=== PATIENT | female | born 1930 | race Caucasian/White ===

== ENCOUNTER 2018-11-08 12:02 | Inpatient (IN) ==
[2018-11-08] MEDS ORDERED: IOPAMIDOL 100 ML BOTTLE IV ONE (12:03)
[2018-11-08] MEDS ORDERED: 0.9 % SODIUM CHLORIDE 1,000 ML IV ONE ×2 (12:26→16:49)
[2018-11-08] MEDS ORDERED: INSULIN REGULAR, HUMAN 1 UNIT/0.01 ML UNIT IV ONE (12:27)
[2018-11-08] MEDS ORDERED: PIPERACILLIN SODIUM/TAZOBACTAM 3.375 GM in DEXTROSE 5% IN WATER 50 ML IV ONE (12:28)
[2018-11-08] MEDS ORDERED: VANCOMYCIN 1,000 MG in 0.9 % SODIUM CHLORIDE 250 ML IV ONE (12:29)
--- NOTE | 2018-11-08 12:33 | Emergency Department Note ---
Chest Pain HPI - General Chief Complaint: Chest Pain Stated Complaint: Chest Pain, Bilateral Hand Pain Time Seen by Provider: 11/08/18 12:20 Source: patient, family Mode of arrival: wheelchair Limitations: no limitations - History of Present Illness HPI Narrative: 87-year-old female oriented only to self comes in for confusion that started this morning. Brought in by her family members, son. He cannot give me meaningful history or review of systems so all that is from family. She is complaining of chest pain like someone sitting on her chest difficulty breathing with that but there is no fever or diaphoresis. She does not have a heart history - Related Data Home Medications Medication Instructions Recorded Confirmed Acetaminophen [Acetaminophen Extra 500 mg PO TIDP PRN 03/04/15 10/21/18 Strength] Atenolol [Tenormin] 100 mg PO DAILY 03/04/15 10/21/18 Calcium Carbonate/Vitamin D3 1 tab PO DAILY 03/04/15 10/21/18 [Calcium 500 + Vit D Caplet] Cyanocobalamin (Vitamin B-12) 1,000 mcg PO DAILY 03/04/15 10/21/18 [Vitamin B-12] Gluc Giles/Chondro Giles A/Vit C/Mn 1 tab PO DAILY 03/04/15 10/21/18 [Glucosamine Chondroitin Tab] Levothyroxine [Synthroid] 75 mcg PO QAMAC 03/04/15 10/21/18 [place]-3 Fatty Acids/Fish Oil [Fish 1 cap PO TID 03/04/15 10/21/18 Oil 1,000 mg Softgel] Vitamin D3 2,000 unit PO DAILY 03/04/15 10/21/18 amLODIPine [Norvasc] 10 mg PO DAILY 03/04/15 10/21/18 metFORMIN [Glucophage] 850 mg PO BIDCC 03/04/15 10/21/18 Calcium Carbonate [Tums] 500 mg CHEWED PRN PRN 03/08/15 10/21/18 Polyvinyl Alcohol/Povidone/Pf 1 each BOTH EYES DAILYP PRN 03/08/15 10/21/18 [Refresh Classic Eye Drops] acetaminophen 300 mg-codeine 30 mg See Rx Instructions PO .Q6-8H PRN 10/21/18 10/21/18 tablet tab gabapentin 100 mg capsule 100 mg PO QHS 10/21/18 10/21/18 glipizide 5 mg tablet 5 mg PO BID 10/21/18 10/21/18 hydrochlorothiazide 12.5 mg capsule 12.5 mg PO QMWF cap 10/21/18 10/21/18 omeprazole 40 mg capsule,delayed 40 mg PO QDAY 10/21/18 10/21/18 release pioglitazone 15 mg tablet 15 mg PO QDAY 10/21/18 10/21/18 Previous Rx's Medication Instructions Recorded Aspirin/Calcium Carbonate/Mag 325 mg PO BID #60 tab 03/09/15 [Aspirin Buffered 325 mg Tab] Walker [Ultra-Light Rollator] 1 each MC DAILY #1 each 03/09/15 oxyCODONE HCL/ACETAMINOPHEN 1 - 2 each PO Q4 PRN #90 tab 03/09/15 [Percocet 5-325 mg Tablet] oxyCODONE HCL/ACETAMINOPHEN 1 each PO Q6H PRN #20 tab 03/20/17 [Percocet 7.5-325 mg Tablet] Allergies Allergy/AdvReac Type Severity Reaction Status Date / Time Sulfa (Sulfonamide Allergy Intermediate Hives Verified 08/08/18 17:20 Antibiotics) [SULFA (SULFONAMIDE ANTIBIOTICS)] aspirin AdvReac Intermediate Other Verified 08/08/18 17:20 amlodipine [From Lotrel] AdvReac Cough Verified 08/08/18 17:20 benazepril [From Lotrel] AdvReac Cough Verified 08/08/18 17:20 hydrocodone AdvReac Hallucinati Verified 08/08/18 17:20 ng rosuvastatin [From Crestor] AdvReac Cough Verified 08/08/18 17:20 Review of Systems Limitations: ROS unobtainable due to patients medical condition Chest Pain PMH - Past Medical History [facility] Narrative: Family History (Last Updated 10/21/18 @ 12:48 by Wilfrid Sanchez) Other No pertinent family history Medical History (Last Updated 10/21/18 @ 12:48 by Wilfrid Sanchez) Hx of gout (Chronic) Lumbar back pain with radiculopathy affecting lower extremity (Chronic) Hip pain (Chronic) Hypothyroidism (Chronic) Diabetes mellitus (Chronic) Osteoarthritis (Chronic) Diverticular disease (Chronic) Hypercalcemia (Chronic) Heartburn (Chronic) Elevated liver function tests (Chronic) Reduced mobility (Chronic) Headache (Chronic) Weakness (Chronic) Difficulty balancing (Chronic) HTN (hypertension) (Chronic) Hematoma (Chronic) 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 Conjunctive are clear sclerae white nonicteric. No nasal discharge or congestion. Oropharynx is with dry buccal mucosa. Limited cooperation on this part of the exam. Neck is supple without lymphadenopathy or thyromegaly. No carotid bruit. Heart is regular rate and rhythm. She does have a soft 2 out of 6 systolic murmur. Lungs are basically clear to auscultation bilaterally. I do not hear any wheezes rales or rhonchi. Palpation of the anterior chest wall reproduces tenderness when palpating the sternum. Abdomen soft nontender nondistended. No peritoneal signs or guarding. No pedal edema. She is oriented only to self, clearly confused and somnolent Limitations: no limitations Course Vital Signs Temperature 98.2 F 11/08/18 12:04 Pulse Rate 59 L 11/08/18 12:04 Respiratory Rate 20 11/08/18 12:04 Blood Pressure 151/60 11/08/18 12:04 Pulse Oximetry (%) 93 11/08/18 12:04 Temperature 98.1 F 11/08/18 15:02 Pulse Rate 55 L 11/08/18 15:48 Respiratory Rate 15 11/08/18 15:48 Blood Pressure 127/47 11/08/18 15:48 Pulse Oximetry (%) 93 11/08/18 15:48 Chest Pain - Lab Data Lab results reviewed: Yes I reviewed the patient's lab results. Result diagrams: 11/08/18 12:28 11/08/18 12:28 Lab Results 11/08/18 11/08/18 11/08/18 Range/Units 12:28 12:28 12:28 WBC 8.6 (4.5-11.0) K/mcL RBC 4.96 (4.00-5.20) M/mcL Hgb 13.9 (12.0-15.0) g/dL Hct 42.4 (36.0-48.0) % POC Hct (36.0-48.0) % MCV 85.5 (80.0-100.0) fL MCH 28.0 (26.0-34.0) pg MCHC 32.8 (31.0-36.0) g/dL RDW 14.7 H (11.5-14.5) % Plt Count 357 (140-440) K/mcL MPV 9.0 (7.4-10.4) fL Gran % 74.3 (38.0-78.0) % Lymph % (Auto) 17.3 (15.5-49.0) % [place] % (Auto) 6.3 (1.0-12.0) % Eos % (Auto) 1.5 (0.0-7.0) % Baso % (Auto) 0.6 (0.0-2.0) % Gran # 6.4 (1.8-8.0) K/mcL Lymph # (Auto) 1.5 (1.5-4.8) K/mcL [place] # (Auto) 0.5 (0.1-0.9) K/mcL Eos # (Auto) 0.1 (0.0-0.7) K/mcL Baso # (Auto) 0.1 (0.0-0.3) K/mcL VBG Lactic Acid (0.5-2.0) mmol/L POC Sodium (133-145) mmol/L Sodium 133 (133-145) mmol/L POC Potassium (3.3-5.1) mmol/L Potassium 4.3 (3.3-5.1) mmol/L POC Chloride (96-108) mmol/L Chloride 94 L (96-108) mmol/L Carbon Dioxide 22 (22-30) mmol/L POC Total CO2 (22-30) mmol/L Anion Gap 17.0 H (8-16) POC BUN (8-23) mg/dl BUN 18 (8-23) mg/dl Creatinine 1.1 (0.6-1.1) mg/dl POC Creatinine (0.6-1.1) mg/dl GFR Calculation 45 Glucose 369 H (70-105) mg/dL POC Glucose (70-105) mg/dL Calcium 9.9 (8.6-10.4) mg/dl POC WB Ioniz Calcium (1.16-1.32) mmol/L Total Bilirubin 0.4 (0.0-1.0) mg/dL AST 30 (0-37) U/l ALT 23 (0-40) U/l Alkaline Phosphatase 105 (39-117) U/L Total Creatine Kinase 41 (24-170) IU/L CK-MB (CK-2) 3.6 H (0-2.9) ng/ml Myoglobin 40 (25-58) ng/ml Troponin T < 0.01 (0-0.03) ng/ml NT-Pro-B Natriuret Pep (0-450) pg/ml Total Protein 8.0 (5.9-8.4) gm/dL Albumin 4.2 (3.2-5.2) gm/dL Globulin 3.8 H (2.2-3.7) gm/dL Albumin/Globulin Ratio 1.1 (1.0-2.3) Lipase (7-60) U/L Procalcitonin (<0.10) ng/mL Urine Color Urine Appearance Urine pH (5.0-9.0) Ur Specific [place] (1.000-1.035) Urine Protein (NEG) mg/dL Urine Glucose (UA) (NEG) mg/dL Urine Ketones (NEG) mg/dL Urine Occult Blood (<0.03) mg/dL Urine Nitrate (NEG) Urine Bilirubin (NEG) mg/dL Urine Urobilinogen (NEG) mg/dL Ur Leukocyte Esterase (NEG) /uL Urine RBC (0-1) /hpf Urine WBC (0-4) /hpf Ur Squamous Epith Cells (0-4) /hpf Urine Bacteria (0) /hpf Urine Mucus (0) /hpf Ur Culture Indicated? 11/08/18 11/08/18 11/08/18 Range/Units 12:29 12:39 12:48 WBC (4.5-11.0) K/mcL RBC (4.00-5.20) M/mcL Hgb (12.0-15.0) g/dL Hct (36.0-48.0) % POC Hct 40.0 (36.0-48.0) % MCV (80.0-100.0) fL MCH (26.0-34.0) pg MCHC (31.0-36.0) g/dL RDW (11.5-14.5) % Plt Count (140-440) K/mcL MPV (7.4-10.4) fL Gran % (38.0-78.0) % Lymph % (Auto) (15.5-49.0) % [place] % (Auto) (1.0-12.0) % Eos % (Auto) (0.0-7.0) % Baso % (Auto) (0.0-2.0) % Gran # (1.8-8.0) K/mcL Lymph # (Auto) (1.5-4.8) K/mcL [place] # (Auto) (0.1-0.9) K/mcL Eos # (Auto) (0.0-0.7) K/mcL Baso # (Auto) (0.0-0.3) K/mcL VBG Lactic Acid 3.2 H (0.5-2.0) mmol/L POC Sodium 134 (133-145) mmol/L Sodium (133-145) mmol/L POC Potassium 4.3 (3.3-5.1) mmol/L Potassium (3.3-5.1) mmol/L POC Chloride 98 (96-108) mmol/L Chloride (96-108) mmol/L Carbon Dioxide (22-30) mmol/L POC Total CO2 23 (22-30) mmol/L Anion Gap (8-16) POC BUN 18 (8-23) mg/dl BUN (8-23) mg/dl Creatinine (0.6-1.1) mg/dl POC Creatinine 0.9 (0.6-1.1) mg/dl GFR Calculation Glucose (70-105) mg/dL POC Glucose 364 H (70-105) mg/dL Calcium (8.6-10.4) mg/dl POC WB Ioniz Calcium 1.17 (1.16-1.32) mmol/L Total Bilirubin (0.0-1.0) mg/dL AST (0-37) U/l ALT (0-40) U/l Alkaline Phosphatase (39-117) U/L Total Creatine Kinase 40 (24-170) IU/L CK-MB (CK-2) (0-2.9) ng/ml Myoglobin (25-58) ng/ml Troponin T (0-0.03) ng/ml NT-Pro-B Natriuret Pep 191.2 (0-450) pg/ml Total Protein (5.9-8.4) gm/dL Albumin (3.2-5.2) gm/dL Globulin (2.2-3.7) gm/dL Albumin/Globulin Ratio (1.0-2.3) Lipase 48 (7-60) U/L Procalcitonin (<0.10) ng/mL Urine Color Urine Appearance Urine pH (5.0-9.0) Ur Specific [place] (1.000-1.035) Urine Protein (NEG) mg/dL Urine Glucose (UA) (NEG) mg/dL Urine Ketones (NEG) mg/dL Urine Occult Blood (<0.03) mg/dL Urine Nitrate (NEG) Urine Bilirubin (NEG) mg/dL Urine Urobilinogen (NEG) mg/dL Ur Leukocyte Esterase (NEG) /uL Urine RBC (0-1) /hpf Urine WBC (0-4) /hpf Ur Squamous Epith Cells (0-4) /hpf Urine Bacteria (0) /hpf Urine Mucus (0) /hpf Ur Culture Indicated? 11/08/18 11/08/18 Range/Units 12:48 13:11 WBC (4.5-11.0) K/mcL RBC (4.00-5.20) M/mcL Hgb (12.0-15.0) g/dL Hct (36.0-48.0) % POC Hct (36.0-48.0) % MCV (80.0-100.0) fL MCH (26.0-34.0) pg MCHC (31.0-36.0) g/dL RDW (11.5-14.5) % Plt Count (140-440) K/mcL MPV (7.4-10.4) fL Gran % (38.0-78.0) % Lymph % (Auto) (15.5-49.0) % [place] % (Auto) (1.0-12.0) % Eos % (Auto) (0.0-7.0) % Baso % (Auto) (0.0-2.0) % Gran # (1.8-8.0) K/mcL Lymph # (Auto) (1.5-4.8) K/mcL [place] # (Auto) (0.1-0.9) K/mcL Eos # (Auto) (0.0-0.7) K/mcL Baso # (Auto) (0.0-0.3) K/mcL VBG Lactic Acid (0.5-2.0) mmol/L POC Sodium (133-145) mmol/L Sodium (133-145) mmol/L POC Potassium (3.3-5.1) mmol/L Potassium (3.3-5.1) mmol/L POC Chloride (96-108) mmol/L Chloride (96-108) mmol/L Carbon Dioxide (22-30) mmol/L POC Total CO2 (22-30) mmol/L Anion Gap (8-16) POC BUN (8-23) mg/dl BUN (8-23) mg/dl Creatinine (0.6-1.1) mg/dl POC Creatinine (0.6-1.1) mg/dl GFR Calculation Glucose (70-105) mg/dL POC Glucose (70-105) mg/dL Calcium (8.6-10.4) mg/dl POC WB Ioniz Calcium (1.16-1.32) mmol/L Total Bilirubin (0.0-1.0) mg/dL AST (0-37) U/l ALT (0-40) U/l Alkaline Phosphatase (39-117) U/L Total Creatine Kinase (24-170) IU/L CK-MB (CK-2) (0-2.9) ng/ml Myoglobin (25-58) ng/ml Troponin T (0-0.03) ng/ml NT-Pro-B Natriuret Pep (0-450) pg/ml Total Protein (5.9-8.4) gm/dL Albumin (3.2-5.2) gm/dL Globulin (2.2-3.7) gm/dL Albumin/Globulin Ratio (1.0-2.3) Lipase (7-60) U/L Procalcitonin < 0.05 (<0.10) ng/mL Urine Color Yellow Urine Appearance Clear Urine pH 6.0 (5.0-9.0) Ur Specific [place] 1.025 (1.000-1.035) Urine Protein Neg (NEG) mg/dL Urine Glucose (UA) >=500 A (NEG) mg/dL Urine Ketones Neg (NEG) mg/dL Urine Occult Blood Neg (<0.03) mg/dL Urine Nitrate Pos A (NEG) Urine Bilirubin Neg (NEG) mg/dL Urine Urobilinogen Neg (NEG) mg/dL Ur Leukocyte Esterase Neg (NEG) /uL Urine RBC 0 (0-1) /hpf Urine WBC 1 (0-4) /hpf Ur Squamous Epith Cells 0 (0-4) /hpf Urine Bacteria Few A (0) /hpf Urine Mucus Few (0) /hpf Ur Culture Indicated? Yes - Radiology Data Radiology results reviewed: Yes I reviewed the patient's radiology results. Chest x-ray shows possible right upper lobe pneumonia. CT scan is ordered CT shows no change for the last 3 months. - EKG Data EKG attestation: Yes I reviewed and interpreted this EKG., Yes This EKG will be read by collision mechanic EKG results narrative: Compared with 03/04/2015 she is get a new right bundle branch block and a first- degree block with long MO. Rate is 58 sinus rhythm Disposition Pt seen by [facility] [employer]ELOPER/PA only: No Clinical Impression: Sepsis Qualifiers: Sepsis type: sepsis due to unspecified organism Sepsis acute organ dysfunction status: unspecified Qualified Code(s): A41.9 - Sepsis, unspecified organism Hyperglycemia due to type 2 diabetes mellitus Qualifiers: Diabetes mellitus intermediate school teacher insulin use: without intermediate school teacher use Qualified Code(s): E11.65 - Type 2 diabetes mellitus with hyperglycemia UTI (urinary tract infection) Qualifiers: Urinary tract infection type: acute cystitis Hematuria presence: without hematuria Qualified Code(s): N30.00 - Acute cystitis without hematuria Summary: Concern for urosepsis versus another acute infectious process causing sepsis; she meets sirs criteria with altered mental status, acute onset. Chest pain is likely musculoskeletal given exam Ordered work-up with x-ray EKG laboratory urinalysis. Get blood cultures start Vanco Zosyn Found to have UTI with sepsis. CT scan of the lungs does not show any acute change from 3 months ago. Given 5 units of insulin for hyperglycemia Discussed findings with family and think patient will benefit from admission for UTI with altered mental status. discussed case with Dr. Franco, hospitalist. He recommended we get a CT scan of the head to make sure were not missing anything else and repeat troponin Dr. Franco agreed to accept the patient Disposition: Xfer As Inpt ([facility]) Condition: Fair Referrals: Lynsey Griffin ARNP [Primary Care Provider] -
[2018-11-08 12:52] LABS: Basophils # (Auto) 0.1 K/mcL (0.0-0.3); Basophils % (Auto) 0.6 % (0.0-2.0); Eosinophils # (Auto) 0.1 K/mcL (0.0-0.7); Eosinophils % (Auto) 1.5 % (0.0-7.0); Granulocytes % (Auto) 74.3 % (38.0-78.0); Hematocrit 42.4 % (36.0-48.0); Hemoglobin 13.9 g/dL (12.0-15.0); Lymphocytes # (Auto) 1.5 K/mcL (1.5-4.8); Lymphocytes % (Auto) 17.3 % (15.5-49.0); Mean Cell Volume 85.5 fL (80.0-100.0); Mean Corpuscular HGB Conc 32.8 g/dL (31.0-36.0); Monocytes # (Auto) 0.5 K/mcL (0.1-0.9); Monocytes % (Auto) 6.3 % (1.0-12.0); Platelet Count 357 K/mcL (140-440); RBC 4.96 M/mcL (4.00-5.20); Red Cell Distribution Width 14.7 % (11.5-14.5); WBC 8.6 K/mcL (4.5-11.0)
[2018-11-08 12:59] LABS: POC Blood Urea Nitrogen 18 mg/dl (8-23); POC CO2 23 mmol/L (22-30); POC Calcium, Ionized 1.17 mmol/L (1.16-1.32); POC Chloride 98 mmol/L (96-108); POC Creatinine 0.9 mg/dl (0.6-1.1); POC Glucose, Random 364 mg/dL (70-105); POC Potassium 4.3 mmol/L (3.3-5.1); POC Sodium 134 mmol/L (133-145)
--- NOTE | 2018-11-08 13:14 | XRay Report ---
CLINICAL INFORMATION: Chest Pain COMPARISON: 08/25/2014 FINDINGS: Heart size, mediastinum and pulmonary vessels are normal. There may be a small infiltrate developing in the paramediastinal right upper lobe. Remaining lungs are clear. No effusions. IMPRESSION: Possible developing right upper lobe infiltrate. Please correlate with clinical history. Consider two-view chest x-ray from two days Interpreted and Authenticated by: Kingsley Rios 11/08/18
[2018-11-08 13:19] LABS: ALT/SGPT 23 U/l (0-40); AST/SGOT 30 U/l (0-37); Albumin 4.2 gm/dL (3.2-5.2); Albumin/Globulin Ratio 1.1 (1.0-2.3); Alkaline Phosphatase 105 U/L (39-117); Bilirubin,Total 0.4 mg/dL (0.0-1.0); Blood Urea Nitrogen 18 mg/dl (8-23); Calcium 9.9 mg/dl (8.6-10.4); Carbon Dioxide 22 mmol/L (22-30); Chloride 94 mmol/L (96-108); Creatine Kinase 41 IU/L (24-170); Creatine Kinase MB 3.6 ng/ml (0-2.9); Globulin 3.8 gm/dL (2.2-3.7); Glomerular Filtration Rate 45; Glucose 369 mg/dL (70-105); Myoglobin 40 ng/ml (25-58)
[2018-11-08 13:19] LABS: proBNP 191.2 pg/ml (0-450)
[2018-11-08 14:09] LABS: Appearance,Urine CLEAR; Bacteria,Urine FEW /hpf (0); Bilirubin,Urine NEG (NEG); Color,Urine YELLOW; Culture Indicated,Urine YES; Glucose,Urine (UA) >=500 mg/dL (NEG); Ketones,Urine NEG (NEG); Leukocyte Esterase,Urine NEG /uL (NEG); Mucus,Urine FEW /hpf (0); Nitrate,Urine POS (NEG); Protein,Urine NEG (NEG); Specific Gravity,Urine 1.025 (1.000-1.035); Urine Blood NEG mg/dL (<0.03); Urine RBC 0 /hpf (0-1); Urine Squamous Epithelial Cell 0 /hpf (0-4); Urine WBC 1 /hpf (0-4); Urobilinogen,Urine NEG (NEG)
--- NOTE | 2018-11-08 14:30 | Cat Scan Report ---
CLINICAL INFORMATION: Right upper lobe infiltrate COMPARISON: 08/08/[address] TECHNIQUE: 80 cc of [id number] were injected intravenously, and 25 seconds later, 0.625 mm helical slices were obtained from the lung apices through the bases. Following reconstruction, 2.5 mm sagittal, coronal and axial reformations were processed and reviewed at lung, mediastinal and bone windows. 7 mm axial MIPS were also obtained to optimize pulmonary nodule detection. The exam was performed using radiation dose optimization techniques including, but not limited to, automated exposure control, adjustment of the mA and/or kV according to patient size and use of iterative reconstruction technique. FINDINGS: Pulmonary parenchymal windows show a 3 cm peribronchovascular groundglass infiltrate in the central right upper lobe which is unchanged from the CT three months prior. Given the chronicity, it likely represents pneumonia or fibrosis. A 2.4 bullae with inferior wall calcification is unchanged from previous study. There is patchy mixed interstitial/alveolar airspace disease in a bandlike distribution in both posterior lower lobe and lingular regions which likely represent a combination of fibrosis and atelectasis. This is also unchanged. Few small nodules, less than 4 mm, both calcified and noncalcified scattered throughout both lungs but predominantly right lung. All are stable and almost certainly certainly granulomas. There are no effusions. Mediastinal windows show the thoracic aorta and pulmonary arteries to be well opacified and normal in contour and caliber. The heart is moderately mildly enlarged with scattered atherosclerotic plaque present in the coronary arteries. There is no adenopathy in the mediastinal hilar or axillary region. Esophagus is normal. No thyroid abnormality. Bone windows show degenerative changes of thoracic spine, but no focal osseous abnormality. Soft tissue of the chest wall are normal. Images. Severe abdomen images show no. IMPRESSION: 1. Moderate groundglass infiltrate in the peribronchiovascular central right upper lobe is actually unchanged from a chest CT three months prior. Given the chronicity, it likely represent organizing pneumonia or fibrosis. No acute infiltrates evident. 2. Mild segmental atelectasis in both posterior lower lobes and lingula. Interpreted and Authenticated by: Kingsley Rios 11/08/18
--- NOTE | 2018-11-08 15:29 | Cat Scan Report ---
CLINICAL INFORMATION: Altered mental status COMPARISON: None. TECHNIQUE: 2.5 mm helical slices were obtained in the skull base to vertex. Following reconstruction, axial reformatted images were reviewed at bone and parenchymal windows. The exam was performed using radiation dose optimization techniques including, but not limited to, automated exposure control, adjustment of the mA and/or kV according to patient size and use of iterative reconstruction technique. FINDINGS: The ventricles, sulci, fissures, and cisterns are symmetrically enlarged compatible with mild age-related atrophy. No extra-axial fluid collections are identified. Moderate chronic ischemic changes seen in the the cerebral white matter that expected for age.. There is no evidence of hemorrhage, mass effect, or edema. Bone windows show no osseous abnormality. IMPRESSION: Mild atrophy and moderate chronic ischemic changes in the deep cerebral white matter expected for age. Interpreted and Authenticated by: Kingsley Rios 11/08/18
--- NOTE | 2018-11-08 16:34 | Internal Med History&Physical ---
Medical - H&P: HPI Patient information: Note initiated : 11/08/18 at 4:30 pm Service Date, if different from initiated Date: [] Patient: Santiago Hunter a 87 y/o F admitted on for Chest Pain, Bilateral Hand Pain. Chief Complaint: [] History of present illness: Ms. Hunter is a 87 year old F Who presents to the ED for chest pain and confusion, brought in by her son. She states the chest pain is like someone is sitting on her chest. It is nonradiating, although she does feel like she has some bilateral hand pain. She says she gets this chest discomfort on a somewhat regular basis. And is usually while she is sitting in her chair, as she is quite sedentary anyway. No nausea vomiting. No history of fevers or chills. He was quite lethargic when she was brought in the ER but has perked up quite a bit with IV fluids and antibiotics alone. She is never given any pain medication and her pain seemed to go away while she was in the ER. She was given insulin for her elevated blood glucose. Family reports she gets confusion at times when she gets sick or is in the hospital. She has had some cognitive decline that is been progressing per the family. Sounds like her daughter helps her with some of the ADLs. He has a chronic cough at night, she also has a history of heartburn. In the ED she was evaluated found to have elevated lactate and glucose. Procalcitonin was unremarkable BNP was unremarkable CT of the chest showed stable chronic changes. First troponin was unremarkable urinalysis with nitrites but no bit WBCs and a few bacteria. Review of Systems: Pertinent positives as above. Denies headache/fever/chills/nausea/vomiting/abdominal pain/dyspnea/diarrhea. Remaini ng 10 point review of system reviewed negative Medical - H&P: PMH Medical history: Medical History (Last Updated 10/21/18 @ 12:48 by Wilfrid Sanchez) Hx of gout (Chronic) Lumbar back pain with radiculopathy affecting lower extremity (Chronic) Hip pain (Chronic) Hypothyroidism (Chronic) Diabetes mellitus (Chronic) Osteoarthritis (Chronic) Diverticular disease (Chronic) Hypercalcemia (Chronic) Heartburn (Chronic) Elevated liver function tests (Chronic) Reduced mobility (Chronic) Headache (Chronic) Weakness (Chronic) Difficulty balancing (Chronic) HTN (hypertension) (Chronic) Hematoma (Chronic) 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) Arthralgia of left temporomandibular joint (Chronic) Diarrhea (Chronic) At risk for falls (Chronic) Hip osteoarthritis (Chronic) Past Surgical History (Last Updated 10/21/18 @ 12:48 by Wilfrid Sanchez) History of esophagogastroduodenoscopy (EGD) (Acute ~04/2018) History of left hip replacement (Acute ~03/2015) Family history: Mother had lung cancer Father prostate cancer Social history: She quit smoking 35 years ago Denies alcohol use Ambulate with a walker Lives with the daughter who is her primary polarity tester Medical - H&P: Meds Home Medications Medication Instructions Recorded Confirmed Type Acetaminophen [Acetaminophen Extra 500 mg PO TIDP PRN 03/04/15 10/21/18 History Strength] Atenolol [Tenormin] 100 mg PO DAILY 03/04/15 10/21/18 History Calcium Carbonate/Vitamin D3 1 tab PO DAILY 03/04/15 10/21/18 History [Calcium 500 + Vit D Caplet] Cyanocobalamin (Vitamin B-12) 1,000 mcg PO DAILY 03/04/15 10/21/18 History [Vitamin B-12] Gluc Giles/Chondro Giles A/Vit C/Mn 1 tab PO DAILY 03/04/15 10/21/18 History [Glucosamine Chondroitin Tab] Levothyroxine [Synthroid] 75 mcg PO QAMAC 03/04/15 10/21/18 History [place]-3 Fatty Acids/Fish Oil [Fish 1 cap PO TID 03/04/15 10/21/18 History Oil 1,000 mg Softgel] Vitamin D3 2,000 unit PO DAILY 03/04/15 10/21/18 History amLODIPine [Norvasc] 10 mg PO DAILY 03/04/15 10/21/18 History metFORMIN [Glucophage] 850 mg PO BIDCC 03/04/15 10/21/18 History Calcium Carbonate [Tums] 500 mg CHEWED PRN PRN 03/08/15 10/21/18 History Polyvinyl Alcohol/Povidone/Pf 1 each BOTH EYES DAILYP PRN 03/08/15 10/21/18 History [Refresh Classic Eye Drops] Aspirin/Calcium Carbonate/Mag 325 mg PO BID #60 tab 03/09/15 10/21/18 Rx [Aspirin Buffered 325 mg Tab] Walker [Ultra-Light Rollator] 1 each MC DAILY #1 each 03/09/15 10/21/18 Rx oxyCODONE HCL/ACETAMINOPHEN 1 - 2 each PO Q4 PRN #90 tab 03/09/15 10/21/18 Rx [Percocet 5-325 mg Tablet] oxyCODONE HCL/ACETAMINOPHEN 1 each PO Q6H PRN #20 tab 03/20/17 10/21/18 Rx [Percocet 7.5-325 mg Tablet] acetaminophen 300 mg-codeine 30 mg See Rx Instructions PO .Q6-8H PRN 10/21/18 10/21/18 History tablet tab gabapentin 100 mg capsule 100 mg PO QHS 10/21/18 10/21/18 History glipizide 5 mg tablet 5 mg PO BID 10/21/18 10/21/18 History hydrochlorothiazide 12.5 mg capsule 12.5 mg PO QMWF cap 10/21/18 10/21/18 History omeprazole 40 mg capsule,delayed 40 mg PO QDAY 10/21/18 10/21/18 History release pioglitazone 15 mg tablet 15 mg PO QDAY 10/21/18 10/21/18 History Allergies Allergy/AdvReac Type Severity Reaction Status Date / Time Sulfa (Sulfonamide Allergy Intermediate Hives Verified 08/08/18 17:20 Antibiotics) [SULFA (SULFONAMIDE ANTIBIOTICS)] aspirin AdvReac Intermediate Other Verified 08/08/18 17:20 amlodipine [From Lotrel] AdvReac Cough Verified 08/08/18 17:20 benazepril [From Lotrel] AdvReac Cough Verified 08/08/18 17:20 hydrocodone AdvReac Hallucinati Verified 08/08/18 17:20 ng rosuvastatin [From Crestor] AdvReac Cough Verified 08/08/18 17:20 Medical - H&P: Exam - Constitutional Vitals: Temp Pulse Resp BP Pulse Ox 98.1 F 59 L 16 123/50 92 11/08/18 15:02 11/08/18 16:16 11/08/18 16:16 11/08/18 16:16 11/08/18 16:16 Exam: General: Alert, Awake, No acute Distress Eyes/N/T: EOMI, PEERL, DMM Head/Neck: neck supple, normocephalic atraumatic CV: RRR, 2/6 SM, normal s1/s2 Pulm: Clear b/l, no wheezing/rhonchi/rales Abd: soft, nontender, +BS x4 Ext: no clubbing/cyanosis/edema Neuro: Alert, no focal deficits, moves all extremities, CN 2-12 grossly intact, symmetrical strength b/l upper/lower, sensations intact b/l upper/lower Skin: warm/dry Medical - H&P: Reslt - Labs CBC & Chem 7: 11/08/18 12:28 11/08/18 12:28 Labs: Short CBC 11/08/18 Range/Units 12:28 WBC 8.6 (4.5-11.0) K/mcL Hgb 13.9 (12.0-15.0) g/dL Hct 42.4 (36.0-48.0) % Plt Count 357 (140-440) K/mcL BMP 11/08/18 12:28 Sodium 133 Potassium 4.3 Chloride 94 L Carbon Dioxide 22 BUN 18 Creatinine 1.1 Glucose 369 H Calcium 9.9 Cardiac Enzymes 11/08/18 11/08/18 11/08/18 Range/Units 12:28 12:28 12:29 Total Creatine Kinase 41 40 (24-170) IU/L CK-MB (CK-2) 3.6 H (0-2.9) ng/ml Troponin T < 0.01 (0-0.03) ng/ml 11/08/18 Range/Units 15:13 Total Creatine Kinase (24-170) IU/L CK-MB (CK-2) (0-2.9) ng/ml Troponin T < 0.01 (0-0.03) ng/ml Liver Function 11/08/18 Range/Units 12:28 Total Bilirubin 0.4 (0.0-1.0) mg/dL AST 30 (0-37) U/l ALT 23 (0-40) U/l Alkaline Phosphatase 105 (39-117) U/L Albumin 4.2 (3.2-5.2) gm/dL Urine 11/08/18 Range/Units 13:11 Urine Color Yellow Urine Appearance Clear Urine pH 6.0 (5.0-9.0) Ur Specific [place] 1.025 (1.000-1.035) Urine Protein Neg (NEG) mg/dL Urine Glucose (UA) >=500 A (NEG) mg/dL - Impressions CT chest with moderate groundglass infiltrate. New bronchovesicular right upper lobe which is unchanged from 3 months prior. Urinalysis with nitrites no WBCs and glucose positive Medical - H&P: A/P - Narrative A/P Narrative: A: *UTI: *AMS (lethargy/confusion): 2/2 above superimposed on underlying early dementia vs mild Cognitive decline -improving already *Lactic acidosis: *Chest pain: appears to be GI vs MSK -EKG and trops unremarkable and this seems to happen regularly for her, unrelated to exertion *Volume depletion: *DM w/Hyperglycemia, and neuropathy: A1c *HTN: *GERD: *Dementia: P: -Rocephin, pending BC/UC -IVF, follow-up lactate -Continue home Norvasc/BB, hold HCTZ -SSI, accuchecks q4h until controlled -med clarify -PT/OT -ppx: Lovenox/home PPI DNR
[2018-11-08] MEDS ORDERED: ACETAMINOPHEN 325 MG TABLET PO PRN (17:24)
[2018-11-08] MEDS ORDERED: PHENobarb/HYOSCY/ATROPINE/SCOP 1 DOSE BOTTLE PO PRN (17:24)
[2018-11-08] MEDS ORDERED: ONDANSETRON 4 MG/2 ML VIAL IV PRN (17:24)
[2018-11-08] MEDS ORDERED: PROCHLORPERAZINE 10 MG/2 ML VIAL IV PRN (17:24)
[2018-11-08] MEDS ORDERED: CALCIUM CARBONATE 500 MG TAB.CHEW CHEWED PRN (17:24)
[2018-11-08] MEDS ORDERED: ALBUTEROL SULFATE 2.5 MG/3 ML NEBULIZER NEB PRN (17:24)
[2018-11-08] MEDS ORDERED: 0.9 % SODIUM CHLORIDE 1,000 ML IV SCH (17:24)
[2018-11-08 17:57] LABS: Hemoglobin A1C 11.6 % HGB (4.0-6.0)
[2018-11-08] MEDS ORDERED: CARBOXYMETHYLCELLULOSE SODIUM 1 EACH DROPER.GEL OU PRN (19:31)
[2018-11-08] MEDS: cefTRIAXone 2 GM in DEXTROSE 5% IN WATER 50 ML IV SCH (19:32)
[2018-11-08] MEDS: INSULIN LISPRO 1 UNIT/0.01 ML UNIT SQ SCH (19:40)
[2018-11-08] MEDS: glipiZIDE 5 MG TAB.XL.24H PO SCH (19:55)
[2018-11-08] MEDS: amLODIPine 10 MG TABLET PO SCH (20:47)
[2018-11-08] MEDS: FAMOTIDINE 20 MG TABLET PO SCH (20:47)
[2018-11-08] MEDS: 0.9 % SODIUM CHLORIDE 10 ML SYRINGE IV SCH (22:08)
[2018-11-09] MEDS: INSULIN LISPRO 1 UNIT/0.01 ML UNIT SQ SCH ×6 (00:16→23:04)
[2018-11-09 05:57] LABS: Basophils # (Auto) 0 K/mcL (0.0-0.3); Basophils % (Auto) 0.4 % (0.0-2.0); Eosinophils # (Auto) 0.1 K/mcL (0.0-0.7); Eosinophils % (Auto) 1.5 % (0.0-7.0); Granulocytes % (Auto) 74.9 % (38.0-78.0); Hematocrit 38.5 % (36.0-48.0); Hemoglobin 12.7 g/dL (12.0-15.0); Lymphocytes # (Auto) 1.6 K/mcL (1.5-4.8); Lymphocytes % (Auto) 16.7 % (15.5-49.0); Mean Cell Volume 86.5 fL (80.0-100.0); Mean Corpuscular HGB Conc 32.9 g/dL (31.0-36.0); Mean Platelet Volume 8.9 fL (7.4-10.4); Monocytes # (Auto) 0.6 K/mcL (0.1-0.9); Monocytes % (Auto) 6.5 % (1.0-12.0); Platelet Count 320 K/mcL (140-440); RBC 4.45 M/mcL (4.00-5.20); Red Cell Distribution Width 14.6 % (11.5-14.5); WBC 9.7 K/mcL (4.5-11.0)
[2018-11-09] MEDS: 0.9 % SODIUM CHLORIDE 10 ML SYRINGE IV SCH ×3 (05:59→23:04)
[2018-11-09] MEDS: LEVOTHYROXINE 100 MCG TABLET PO SCH (06:51)
[2018-11-09 07:23] LABS: ALT/SGPT 17 U/l (0-40); AST/SGOT 21 U/l (0-37); Albumin 3.6 gm/dL (3.2-5.2); Albumin/Globulin Ratio 1.2 (1.0-2.3); Alkaline Phosphatase 78 U/L (39-117); Bilirubin,Direct < 0.2 mg/dL (0.0-0.3); Bilirubin,Total 0.3 mg/dL (0.0-1.0); Blood Urea Nitrogen 17 mg/dl (8-23); Calcium 9.2 mg/dl (8.6-10.4); Carbon Dioxide 21 mmol/L (22-30); Chloride 102 mmol/L (96-108); Globulin 3.1 gm/dL (2.2-3.7); Glomerular Filtration Rate 51; Glucose 233 mg/dL (70-105); Lactate Dehydrogenase 169 U/L (94-250); Triglycerides 293 mg/dl (<150); Uric Acid 4.4 mg/dL (2.5-8.0)
[2018-11-09] MEDS: glipiZIDE 5 MG TAB.XL.24H PO SCH ×2 (07:43→17:00)
[2018-11-09] MEDS: ASPIRIN 81 MG TAB.CHEW PO SCH (07:43)
[2018-11-09] MEDS: ATENOLOL 50 MG TABLET PO SCH (07:43)
[2018-11-09] MEDS: FAMOTIDINE 20 MG TABLET PO SCH ×2 (07:43→23:04)
[2018-11-09] MEDS: PIOGLITAZONE 15 MG TABLET PO SCH (07:43)
[2018-11-09] MEDS: ENOXAPARIN 40 MG/0.4 ML SYRINGE SQ SCH (07:44)
[2018-11-09] MEDS ORDERED: MAGNESIUM SULFATE 2 GM/50 ML BAG IV ONE (07:45)
--- NOTE | 2018-11-09 07:47 | Internal Med Progress Note ---
Medical - PN: Subj Patient information: Note initiated : 11/09/18 at 7:40 am Service Date, if different from initiated Date: [] Patient: Santiago Hunter a 88 y/o F admitted on 11/08/18 for Chest Pain, Bilateral Hand Pain. Chief Complaint: [] Interval history: Ms. Hunter is a 87 year old F Who presents to the ED for chest pain and confusion, brought in by her son. She states the chest pain is like someone is sitting on her chest. It is nonradiating, although she does feel like she has some bilateral hand pain. She says she gets this chest discomfort on a somewhat regular basis. And is usually while she is sitting in her chair, as she is quite sedentary anyway. No nausea vomiting. No history of fevers or chills. He was quite lethargic when she was brought in the ER but has perked up quite a bit with IV fluids and antibiotics alone. She is never given any pain medication and her pain seemed to go away while she was in the ER. She was given insulin for her elevated blood glucose. Family reports she gets confusion at times when she gets sick or is in the hospital. She has had some cognitive decline that is been progressing per the family. Sounds like her daughter helps her with some of the ADLs. He has a chronic cough at night, she also has a history of heartburn. In the ED she was evaluated found to have elevated lactate and glucose. Procalcitonin was unremarkable BNP was unremarkable CT of the chest showed stable chronic changes. First troponin was unremarkable urinalysis with nitrites but no bit WBCs and a few bacteria. 11/09 Feeling much better today. Concern exactly what her diabetic oral medications were but said they have been changed recently the newest is Jardiance. I discussed with her that her A1c was quite high and that she may need insulin therapy. No overnight events. No new complaints. Review of Systems: denies headache/fever/chills/nausea/vomiting/chest or abdominal pain/cough/dyspnea/diarrhea. Otherwise see above. - Constitutional Vitals: Vital Signs Temp Pulse Resp BP Pulse Ox 98.3 F 64 20 139/71 95 11/09/18 04:00 11/09/18 04:00 11/09/18 04:00 11/09/18 04:00 11/09/18 04:00 Period Temp Pulse Resp BP Sys/Villar Pulse Ox Last 24 Hr 97.9 F-99.0 F 53-68 13-24 110-151/39-71 91-100 Intake and Output 11/08/18 11/09/18 11/09/18 21:59 05:59 13:59 Intake Total 595 300 825 Output Total 1800 1800 Balance -1205 -1500 825 Weight 64.864 kg Intake & Output: Intake & Output 11/08/18 11/09/18 11/09/18 21:59 05:59 13:59 Intake Total 595 300 825 Output Total 1800 1800 Balance -1205 -1500 825 Weight 64.864 kg Intake: IV 475 825 Sodium Chloride 0.9% 1,000 ml @ 175 250 mls/hr IV .Q4H ONE Rx#: [id number] Vancomycin 1,000 mg In Sodium 250 Chloride 0.9% 250 ml @ 250 mls/ hr IV ONCE ONE Rx#:[id number] Rocephin 2 gm In Dextrose 5% in 50 Water 50 ml @ 100 mls/hr IV DAILY REPLACED BY [facility] Rx#:[id number] Oral 120 300 Output: Urine Catheter Amount 1800 1800 Other: Meal Dinner Percent of Meal Consumed 100% Feeding Ability Independent Urine Appearance Clear Clear Uretheral (Boucher) Clear Clear Sediment Urine Color Pale Bright Yellow Uretheral (Boucher) Pale Pale Exam: General: Alert, Awake, No acute Distress Eyes/N/T: EOMI, Head/Neck: neck supple, CV: RRR, 2/6 SM, Pulm: Clear b/l, no wheezing/rhonchi/rales Abd: soft, nontender, +BS x4 Ext: no clubbing/cyanosis/edema Neuro: Alert, no focal deficits, moves all extremities, Skin: warm/dry Medical - PN: Obj Da - Labs CBC & Chem 7: 11/09/18 04:35 11/09/18 04:35 Labs: Abnormal Lab Results 11/09/18 11/09/18 11/08/18 04:35 04:35 13:11 RDW 14.6 H VBG Lactic Acid Chloride Carbon Dioxide 21 L Anion Gap Glucose 233 H POC Glucose Hemoglobin A1c Magnesium 1.4 L CK-MB (CK-2) Globulin Triglycerides 293 H Urine Glucose (UA) >=500 A Urine Nitrate Pos A Urine Bacteria Few A 11/08/18 11/08/18 11/08/18 12:48 12:39 12:29 RDW VBG Lactic Acid 3.2 H Chloride Carbon Dioxide Anion Gap Glucose POC Glucose 364 H Hemoglobin A1c 11.6 H Magnesium CK-MB (CK-2) Globulin Triglycerides Urine Glucose (UA) Urine Nitrate Urine Bacteria 11/08/18 11/08/18 12:28 12:28 RDW 14.7 H VBG Lactic Acid Chloride 94 L Carbon Dioxide Anion Gap 17.0 H Glucose 369 H POC Glucose Hemoglobin A1c Magnesium CK-MB (CK-2) 3.6 H Globulin 3.8 H Triglycerides Urine Glucose (UA) Urine Nitrate Urine Bacteria Meds: Medications Acetaminophen (Tylenol) 650 mg PO Q6HP PRN PRN Reason: PAIN/FEVER > 101 Albuterol Sulfate (Ventolin) 2.5 mg NEB Q2HP PRN PRN Reason: Shortness Of Breath Amlodipine Besylate (Norvasc) 10 mg PO QHS REPLACED BY [facility] Last Admin: 11/08/18 20:47 Dose: 10 mg Documented by: Artificial Tears (Refresh Celluvisc) 1 each OU DAILYP PRN PRN Reason: Dry Eyes Aspirin (Aspirin) 81 mg PO QDAY REPLACED BY [facility] Atenolol (Tenormin) 100 mg PO DAILY REPLACED BY [facility] Belladonna/Phenobarbital (Gi Cocktail) 1 dose PO Q4HP PRN PRN Reason: Dyspepsia Calcium Carbonate/Glycine (Tums) 500 mg CHEWED Q4HP PRN PRN Reason: Dyspepsia Diagnostic Test (Pha) (Accu-Chek) 1 each FS Q4 REPLACED BY [facility] Last Admin: 11/09/18 07:34 Dose: 1 each Documented by: Enoxaparin Sodium (Lovenox) 40 mg SQ DAILY REPLACED BY [facility] Famotidine (Pepcid) 20 mg PO BID REPLACED BY [facility] Last Admin: 11/08/18 20:47 Dose: 20 mg Documented by: [facility] Last Admin: 11/08/18 19:55 Dose: 5 mg Documented by: Ceftriaxone Sodium 2 gm/ (Dextrose) 50 mls @ 100 mls/hr IV DAILY REPLACED BY [facility] Last Infusion: 11/08/18 20:49 Dose: Infused Documented by: Insulin Human Lispro (Humalog) 0 unit SQ Q4 REPLACED BY [facility]; Protocol Last Admin: 11/09/18 03:56 Dose: 4 units Documented by: Levothyroxine Sodium (Synthroid) 100 mcg PO QAMAC REPLACED BY [facility] Last Admin: 11/09/18 06:51 Dose: 100 mcg Documented by: Non-Formulary Medication (Empagliflozin [Jardiance]) 25 mg PO QDAY REPLACED BY [facility] Ondansetron HCl (Zofran) 4 mg IV Q6HP PRN PRN Reason: Nausea And Vomiting Pioglitazone HCl (Actos) 15 mg PO QDAY [facility] Prochlorperazine (Compazine) 5 mg IV Q4HP PRN PRN Reason: Nausea And Vomiting Sodium Chloride (Saline Flush) 10 ml IV Q8 REPLACED BY [facility] Last Admin: 11/09/18 05:59 Dose: 10 ml Documented by: Medical - PN: A/P - Time Spent With Patient Total time spent is greater than 50% in coordination of care (as documented) at patient's floor/unit and/or counseling patient: - Narrative A/P Narrative: A: *UTI: *AMS (lethargy/confusion): 2/2 above superimposed on underlying early dementia vs mild Cognitive decline -Improved *Lactic acidosis: resolved *Chest pain: appears to be GI vs MSK, resolved -EKG and trops unremarkable and this seems to happen regularly for her, unrelated to exertion *Volume depletion: resolved *DM w/Hyperglycemia, and neuropathy: A1c 11.6, uncontrolled -on ?empagliflozin/glipizide/pioglitazone at home *HTN: *GERD: *Dementia: *Hypomag: P: -Rocephin, pending BC/UC -Continue home Norvasc/BB, hold HCTZ -SSI, likely needs insulin therapy given A1c -med clarify -PT/OT -ppx: Lovenox/home PPI DNR Medical - PN: Qual - Stroke Symptom Onset Unknown: No - VTE Deep Vein Thrombosis/Pulmonary Embolism Present on Admission: No
[2018-11-09] MEDS: cefTRIAXone 2 GM in DEXTROSE 5% IN WATER 50 ML IV SCH (08:42)
[2018-11-09] MEDS: Empagliflozin [Jardiance] 25 MG PO SCH (08:42)
--- NOTE | 2018-11-09 09:18 | Discharge Summary ---
Medical - DS: Prov Patient information: Note initiated : 11/09/18 at 9:16 am Service Date, if different from initiated Date: [] Patient: Santiago Hunter 88 y/o F admitted on 11/08/18 for Chest Pain, Bilateral Hand Pain. Chief Complaint: [] Date of admission: 11/08/18 17:20 Discharge date: 11/10/18 Primary care physician: Lynsey Griffin Consults: 11/08/18 Consult to Physician [CONS] Stat Comment: Consulting Provider: Keyshawn Franco Reason For Exam: Physician to Consult Medical - DS: Meds - Discharge Medications Prescriptions: Ciprofloxacin [Cipro] 500 mg PO BID #6 tab Active and Home Medications: Home Medications Atenolol [Tenormin] 100 mg PO DAILY 03/04/15 [History Confirmed 11/08/18 Last Taken 03/08/15] amLODIPine [Norvasc] 10 mg PO QHS 03/04/15 [History Confirmed 11/08/18 Last Taken 03/08/15] Calcium Carbonate [Tums] 500 mg CHEWED PRN PRN 03/08/15 [History Confirmed 11/08/18 Last Taken Unknown] Polyvinyl Alcohol/Povidone/Pf [Refresh Classic Eye Drops] 1 each BOTH EYES DAILYP PRN 03/08/15 [History Confirmed 11/08/18 Last Taken 03/08/15] Walker [Ultra-Light Rollator] 1 each MC DAILY #1 each 03/09/15 [Rx Confirmed 11/09/18 Last Taken Unknown] acetaminophen 300 mg-codeine 30 mg tablet See Rx Instructions PO .Q6-8H PRN tab 10/21/18 [History Confirmed 11/08/18 Last Taken Unknown] hydrochlorothiazide 12.5 mg capsule 12.5 mg PO QMWF cap 10/21/18 [History Confirmed 11/08/18 Last Taken Unknown] pioglitazone 15 mg tablet 15 mg PO QDAY 10/21/18 [History Confirmed 11/08/18 Last Taken Unknown] Aspirin [Donal Chewable Aspirin] 81 mg PO QDAY 11/08/18 [History Confirmed 11/08/18 Last Taken Unknown] Empagliflozin [Jardiance] 25 mg PO QDAY 11/08/18 [History Confirmed 11/08/18 Last Taken Unknown] Glipizide ER 10 mg PO BID 11/08/18 [History Confirmed 11/09/18 Last Taken Unknown] Pantoprazole Sodium 40 mg PO QHS 11/08/18 [History Confirmed 11/08/18 Last Taken Unknown] Vitamin B12 1,000 mcg PO QDAY 11/08/18 [History Confirmed 11/08/18 Last Taken Unknown] Medical - DS: Hosp Hospital Course: Ms. Hunter is a 87 year old F Who presents to the ED for chest pain and confusion, brought in by her son. She states the chest pain is like someone is sitting on her chest. It is nonradiating, although she does feel like she has some bilateral hand pain. She says she gets this chest discomfort on a somewhat regular basis. And is usually while she is sitting in her chair, as she is quite sedentary anyway. No nausea vomiting. No history of fevers or chills. He was quite lethargic when she was brought in the ER but has perked up quite a bit with IV fluids and antibiotics alone. She is never given any pain medication and her pain seemed to go away while she was in the ER. She was given insulin for her elevated blood glucose. Family reports she gets confusion at times when she gets sick or is in the hospital. She has had some cognitive decline that is been progressing per the family. Sounds like her daughter helps her with some of the ADLs. He has a chronic cough at night, she also has a history of heartburn. In the ED she was evaluated found to have elevated lactate and glucose. Procalcitonin was unremarkable BNP was unremarkable CT of the chest showed stable chronic changes. First troponin was unremarkable urinalysis with nitr ites but no bit WBCs and a few bacteria. 11/09 Feeling much better today. Concern exactly what her diabetic oral medications were but said they have been changed recently the newest is Jardiance. I discussed with her that her A1c was quite high and that she may need insulin therapy. No overnight events. No new complaints. 11/10 Agitated earlier in the night. Otherwise no new complaints or issues. Stable for discharge. 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, uncontrolled -on ?empagliflozin/glipizide/pioglitazone at home *HTN: *GERD: *Dementia: Discharge diagnosis: UTI altered mental status lactic acidosis GI versus musculoskeletal chest p Secondary discharge diagnosis: Volume depletion diabetes with hyperglycemia uncontrolled diabetes hypertension GERD dementia hypomagnesia - Time Spent with Patient Total time spent providing and/or coordinating discharge services: Greater than 30 minutes Medical - DS: Exam - Constitutional Vitals: Vital Signs Temp Pulse Pulse Resp BP BP BP 11/09/18 08:00 98.2 F 60 18 148/67 11/09/18 04:00 98.3 F 64 20 139/71 11/09/18 00:09 99.0 F 68 24 H 140/58 11/08/18 19:30 98.4 F 62 24 H 138/64 11/08/18 17:25 98.1 F 59 L 16 123/50 11/08/18 17:20 98.0 F 60 18 135/60 11/08/18 17:16 58 L 17 123/61 11/08/18 17:01 61 19 125/55 11/08/18 16:46 58 L 18 129/60 11/08/18 16:38 62 16 144/67 11/08/18 16:16 59 L 16 123/50 11/08/18 16:01 55 L 19 127/49 11/08/18 15:48 55 L 15 127/47 11/08/18 15:02 98.1 F 17 113/39 11/08/18 14:46 98.0 F 55 L 19 123/52 11/08/18 14:31 97.9 F 53 L 16 112/48 11/08/18 14:16 55 L 17 118/47 11/08/18 14:01 55 L 15 110/55 11/08/18 13:52 56 L 16 123/50 11/08/18 13:16 57 L 15 127/60 11/08/18 13:12 59 L 16 124/62 11/08/18 13:11 55 L 13 11/08/18 12:31 59 L 20 138/64 11/08/18 12:16 58 L 146/69 11/08/18 12:04 98.2 F 59 L 20 151/60 Pulse Ox 11/09/18 08:00 94 09/11/19 04:00 95 11/09/18 00:09 92 11/08/18 19:30 93 11/08/18 17:25 92 11/08/18 17:20 93 11/08/18 17:16 93 11/08/18 17:01 92 11/08/18 16:46 100 11/08/18 16:38 94 11/08/18 16:16 92 11/08/18 16:01 93 11/08/18 15:48 93 11/08/18 15:02 11/08/18 14:46 94 11/08/18 14:31 92 11/08/18 14:16 94 11/08/18 14:01 94 11/08/18 13:52 94 11/08/18 13:16 96 11/08/18 13:12 94 11/08/18 13:11 95 11/08/18 12:31 94 11/08/18 12:16 91 11/08/18 12:04 93 Intake and Output 11/08/18 11/09/18 11/09/18 21:59 05:59 13:59 Intake Total 595 300 975 Output Total 1800 1800 Balance -1205 -1500 975 Intake: IV 475 825 Sodium Chloride 0.9% 1,000 ml @ 175 250 mls/hr IV .Q4H ONE Rx#: [id number] Vancomycin 1,000 mg In Sodium 250 Chloride 0.9% 250 ml @ 250 mls/ hr IV ONCE ONE Rx#:[id number] Rocephin 2 gm In Dextrose 5% in 50 Water 50 ml @ 100 mls/hr IV DAILY [facility] Rx#:[id number] Oral 120 300 150 Output: Urine Catheter Amount 1800 1800 Other: Meal Dinner Breakfast Percent of Meal Consumed 100% 100% Feeding Ability Independent Assist with Tray Set Up Urine Appearance Clear Clear Uretheral (Boucher) Clear Clear Sediment Urine Color Pale Bright Yellow Uretheral (Boucher) Pale Pale Weight 64.864 kg Medical - DS: Data Labs on day of discharge: Labs from last 24 hours 11/09/18 11/09/18 11/08/18 04:35 04:35 18:04 WBC 9.7 RBC 4.45 Hgb 12.7 Hct 38.5 POC Hct MCV 86.5 MCH 28.5 MCHC 32.9 RDW 14.6 H Plt Count 320 MPV 8.9 Gran % 74.9 Lymph % (Auto) 16.7 [place] % (Auto) 6.5 Eos % (Auto) 1.5 Baso % (Auto) 0.4 Gran # 7.3 Lymph # (Auto) 1.6 [place] # (Auto) 0.6 Eos # (Auto) 0.1 Baso # (Auto) 0 VBG Lactic Acid 1.8 POC Sodium Sodium 137 POC Potassium Potassium 3.8 POC Chloride Chloride 102 Carbon Dioxide 21 L POC Total CO2 Anion Gap 14.0 POC BUN BUN 17 Creatinine 1.0 POC Creatinine GFR Calculation 51 Glucose 233 H POC Glucose Hemoglobin A1c Estim Average Glucose Uric Acid 4.4 Calcium 9.2 POC WB Ioniz Calcium Phosphorus 3.0 Magnesium 1.4 L Total Bilirubin 0.3 Direct Bilirubin < 0.2 GGT 27 AST 21 ALT 17 Alkaline Phosphatase 78 Lactate Dehydrogenase 169 Total Creatine Kinase CK-MB (CK-2) Myoglobin Troponin T NT-Pro-B Natriuret Pep Total Protein 6.7 Albumin 3.6 Globulin 3.1 Albumin/Globulin Ratio 1.2 Triglycerides 293 H Lipase Procalcitonin Urine Color Urine Appearance Urine pH Ur Specific Boyd Urine Protein Urine Glucose (UA) Urine Ketones Urine Occult Blood Urine Nitrate Urine Bilirubin Urine Urobilinogen Ur Leukocyte Esterase Urine RBC Urine WBC Ur Squamous Epith Cells Urine Bacteria Urine Mucus Ur Culture Indicated? 11/08/18 11/08/18 11/08/18 15:13 13:11 12:48 WBC RBC Hgb Hct POC Hct MCV MCH MCHC RDW Plt Count MPV Gran % Lymph % (Auto) [place] % (Auto) Eos % (Auto) Baso % (Auto) Gran # Lymph # (Auto) [place] # (Auto) Eos # (Auto) Baso # (Auto) VBG Lactic Acid POC Sodium Sodium POC Potassium Potassium POC Chloride Chloride Carbon Dioxide POC Total CO2 Anion Gap POC BUN BUN Creatinine POC Creatinine GFR Calculation Glucose POC Glucose Hemoglobin A1c Estim Average Glucose Uric Acid Calcium POC WB Ioniz Calcium Phosphorus Magnesium Total Bilirubin Direct Bilirubin GGT AST ALT Alkaline Phosphatase Lactate Dehydrogenase Total Creatine Kinase CK-MB (CK-2) Myoglobin Troponin T < 0.01 NT-Pro-B Natriuret Pep Total Protein Albumin Globulin Albumin/Globulin Ratio Triglycerides Lipase Procalcitonin < 0.05 Urine Color Yellow Urine Appearance Clear Urine pH 6.0 Ur Specific Boyd 1.025 Urine Protein Neg Urine Glucose (UA) >=500 A Urine Ketones Neg Urine Occult Blood Neg Urine Nitrate Pos A Urine Bilirubin Neg Urine Urobilinogen Neg Ur Leukocyte Esterase Neg Urine RBC 0 Urine WBC 1 Ur Squamous Epith Cells 0 Urine Bacteria Few A Urine Mucus Few Ur Culture Indicated? Yes 11/08/18 11/08/18 11/08/18 12:48 12:39 12:29 WBC RBC Hgb Hct POC Hct 40.0 MCV MCH MCHC RDW Plt Count MPV Gran % Lymph % (Auto) [place] % (Auto) Eos % (Auto) Baso % (Auto) Gran # Lymph # (Auto) [place] # (Auto) Eos # (Auto) Baso # (Auto) VBG Lactic Acid 3.2 H POC Sodium 134 Sodium POC Potassium 4.3 Potassium POC Chloride 98 Chloride Carbon Dioxide POC Total CO2 23 Anion Gap POC BUN 18 BUN Creatinine POC Creatinine 0.9 GFR Calculation Glucose POC Glucose 364 H Hemoglobin A1c 11.6 H Estim Average Glucose 286 Uric Acid Calcium POC WB Ioniz Calcium 1.17 Phosphorus Magnesium Total Bilirubin Direct Bilirubin GGT AST ALT Alkaline Phosphatase Lactate Dehydrogenase Total Creatine Kinase CK-MB (CK-2) Myoglobin Troponin T NT-Pro-B Natriuret Pep Total Protein Albumin Globulin Albumin/Globulin Ratio Triglycerides Lipase Procalcitonin Urine Color Urine Appearance Urine pH Ur Specific Boyd Urine Protein Urine Glucose (UA) Urine Ketones Urine Occult Blood Urine Nitrate Urine Bilirubin Urine Urobilinogen Ur Leukocyte Esterase Urine RBC Urine WBC Ur Squamous Epith Cells Urine Bacteria Urine Mucus Ur Culture Indicated? 11/08/18 11/08/18 11/08/18 12:29 12:28 12:28 WBC RBC Hgb Hct POC Hct MCV MCH MCHC RDW Plt Count MPV Gran % Lymph % (Auto) [place] % (Auto) Eos % (Auto) Baso % (Auto) Gran # Lymph # (Auto) [place] # (Auto) Eos # (Auto) Baso # (Auto) VBG Lactic Acid POC Sodium Sodium 133 POC Potassium Potassium 4.3 POC Chloride Chloride 94 L Carbon Dioxide 22 POC Total CO2 Anion Gap 17.0 H POC BUN BUN 18 Creatinine 1.1 POC Creatinine GFR Calculation 45 Glucose 369 H POC Glucose Hemoglobin A1c Estim Average Glucose Uric Acid Calcium 9.9 POC WB Ioniz Calcium Phosphorus Magnesium Total Bilirubin 0.4 Direct Bilirubin GGT AST 30 ALT 23 Alkaline Phosphatase 105 Lactate Dehydrogenase Total Creatine Kinase 40 41 CK-MB (CK-2) 3.6 H Myoglobin 40 Troponin T < 0.01 NT-Pro-B Natriuret Pep 191.2 Total Protein 8.0 Albumin 4.2 Globulin 3.8 H Albumin/Globulin Ratio 1.1 Triglycerides Lipase 48 Procalcitonin Urine Color Urine Appearance Urine pH Ur Specific Boyd Urine Protein Urine Glucose (UA) Urine Ketones Urine Occult Blood Urine Nitrate Urine Bilirubin Urine Urobilinogen Ur Leukocyte Esterase Urine RBC Urine WBC Ur Squamous Epith Cells Urine Bacteria Urine Mucus Ur Culture Indicated? 11/08/18 12:28 WBC 8.6 RBC 4.96 Hgb 13.9 Hct 42.4 POC Hct MCV 85.5 MCH 28.0 MCHC 32.8 RDW 14.7 H Plt Count 357 MPV 9.0 Gran % 74.3 Lymph % (Auto) 17.3 [place] % (Auto) 6.3 Eos % (Auto) 1.5 Baso % (Auto) 0.6 Gran # 6.4 Lymph # (Auto) 1.5 [place] # (Auto) 0.5 Eos # (Auto) 0.1 Baso # (Auto) 0.1 VBG Lactic Acid POC Sodium Sodium POC Potassium Potassium POC Chloride Chloride Carbon Dioxide POC Total CO2 Anion Gap POC BUN BUN Creatinine POC Creatinine GFR Calculation Glucose POC Glucose Hemoglobin A1c Estim Average Glucose Uric Acid Calcium POC WB Ioniz Calcium Phosphorus Magnesium Total Bilirubin Direct Bilirubin GGT AST ALT Alkaline Phosphatase Lactate Dehydrogenase Total Creatine Kinase CK-MB (CK-2) Myoglobin Troponin T NT-Pro-B Natriuret Pep Total Protein Albumin Globulin Albumin/Globulin Ratio Triglycerides Lipase Procalcitonin Urine Color Urine Appearance Urine pH Ur Specific Boyd Urine Protein Urine Glucose (UA) Urine Ketones Urine Occult Blood Urine Nitrate Urine Bilirubin Urine Urobilinogen Ur Leukocyte Esterase Urine RBC Urine WBC Ur Squamous Epith Cells Urine Bacteria Urine Mucus Ur Culture Indicated? Medical - DS: A/P - Patient/Caregiver Discharge Instructions Activity: increase activity as tolerated Diet: Consistent Carbohydrate Prescriptions: Ciprofloxacin [Cipro] 500 mg PO BID #6 tab - Follow up Plan Follow up with: Lynsey Griffin ARNP [Primary Care Provider] - Disposition: Home Health Service Prognosis: Fair Rehab Potential: Fair Overall status at discharge: patient is back to baseline Medical - DS: Qual - VTE Deep Vein Thrombosis/Pulmonary Embolism Present on Admission: No
[2018-11-09] MEDS: INSULIN GLARGINE, HUMAN 1 UNIT/0.01 ML SQ SCH (10:05)
[2018-11-09] MEDS ORDERED: OLANZapine 10 MG VIAL IM SCH (21:45)
[2018-11-09] MEDS ORDERED: OLANZapine 10 MG VIAL IM ONE (21:52)
[2018-11-09] MEDS ORDERED: OLANZapine 10 MG VIAL IM PRN (22:41)
[2018-11-09] MEDS: amLODIPine 10 MG TABLET PO SCH (23:04)
[2018-11-10] MEDS: LEVOTHYROXINE 100 MCG TABLET PO SCH (10:36)
[2018-11-10] MEDS: INSULIN LISPRO 1 UNIT/0.01 ML UNIT SQ SCH ×2 (10:36→12:30)
[2018-11-10] MEDS: 0.9 % SODIUM CHLORIDE 10 ML SYRINGE IV SCH (10:40)
[2018-11-10] MEDS: glipiZIDE 5 MG TAB.XL.24H PO SCH (10:59)
[2018-11-10] MEDS: ASPIRIN 81 MG TAB.CHEW PO SCH (10:59)
[2018-11-10] MEDS: cefTRIAXone 2 GM in DEXTROSE 5% IN WATER 50 ML IV SCH (11:00)
[2018-11-10] MEDS: ATENOLOL 50 MG TABLET PO SCH (11:00)
[2018-11-10] MEDS: Empagliflozin [Jardiance] 25 MG PO SCH (11:01)
[2018-11-10] MEDS: ENOXAPARIN 40 MG/0.4 ML SYRINGE SQ SCH (11:02)
[2018-11-10] MEDS: FAMOTIDINE 20 MG TABLET PO SCH (11:02)
[2018-11-10] MEDS: PIOGLITAZONE 15 MG TABLET PO SCH (11:25)
[2018-11-10] MEDS: INSULIN GLARGINE, HUMAN 1 UNIT/0.01 ML SQ SCH (11:25)
== END 2018-11-10 13:33 | disposition home health service (06) | DRG 690 ==
LOC: ED 12:02 → MEDSUR 17:20
PROVIDERS: ADMIT Internal Medicine; ATTEND Internal Medicine